=== PATIENT | male | born 1930 | race Caucasian/White ===

== ENCOUNTER 2016-08-08 21:10 | Emergency (ER) | payer MEDICARE, OTHER ==
[~2016-08-08] VITALS: Ht 188 cm; Wt 95.0 kg
[2016-08-08 21:37] VITALS: BP 149/104; PULSE 106; RESP 22; TEMP 98.4; O2SAT 96
[2016-08-08] MEDS ORDERED: LIDOCAINE HCL 2% JELLY 5 ML SYRINGE TOPICAL ONE (23:00)
[2016-08-08 23:38] LABS: POTASSIUM 3.6 MEQ/L (3.5-5.1)
[2016-08-08 23:41] LABS: BICARBONATE 21.2 MEQ/L (21.0-32.0)
[2016-08-08 23:42] LABS: BLOOD, URINE LARGE (NEG); GLUCOSE,URINE 100 mg/dL (NEG); KETONE, URINE 15 mg/dL (NEG)
[2016-08-08 23:48] LABS: NITRITE,URINE POS (NEG); URINE COLOR RED (YELLW/STRAW)
[2016-08-08] MEDS ORDERED: ASPI81CH37 CHEW (23:48)
[2016-08-08 23:49] LABS: BACTERIA, URINE FEW /hpf; COMMENT (UR) CATH-CULTURE IND; CULTURE IF INDICATED CATH CULTURE IND; RBC, URINE INNUM /hpf (0-3); SQUAMOUS EPITHELIAL CELL URINE 0-5 /hpf (0-5)
--- NOTE | 2016-08-09 00:05 | PD ---
HPI Chief Complaint: Complaint Time Seen by Provider: 22:50 Travel History International Travel<30 days: No Contact w/Intl Traveler<30days: No Traveled to known affect area: No History of Present Illness HPI patient is an 85 year old male who had removal of bladder stones on saturday at [facility] released saturday (yesterday) presents to the emergency room with in ability to urinate. also reports having a turp during this time. patient states had a hartman in after the procedure and the it was discontinued. hes been having hematuria ever since the procedure and his urologist said this was expected. denies a problem with his kidneys. he is taking doxycycline for uti. denies fevers, denies abdominal pain. denies change in bowel habits. PFSH Past Medical History Arthritis: Yes High Cholesterol: Yes Diminished Hearing: No Hypertension: Yes Tetanus Vaccination: < 5 Years Influenza Vaccination: No Past Surgical History Genitourinary Surgery: Yes (TRP JULY 2016) Social History Alcohol Use: No Tobacco Use: No Substance Use: No Allergies-Medications (Allergen,Severity, Reaction): Coded Allergies: Neosporin (Verified Allergy, Mild, Rash, 08/08/16) Reported Meds & Prescriptions Reported Meds & Active Scripts Active Reported Doxycycline (Doxycycline (Monohydrate)) 100 Mg Cap Hydrocodone-Acetaminophen 5-325 mg Tab 1 Tab PO Q4H PRN Pravastatin 40 Mg Tab 40 Mg PO DAILY Metoprolol Tartrate 25 Mg Tab 25 Mg PO DAILY Plavix (Clopidogrel Bisulfate) 75 Mg Tab 75 Mg PO DAILY Aspirin Low Dose (Aspirin) 81 Mg Chew 81 Mg CHEW DAILY Review of Systems Except as stated in HPI: all other systems reviewed are Neg Physical Exam Narrative GENERAL: wd wn in minimal discomfort SKIN: Warm and dry. HEAD: Atraumatic. Normocephalic. EYES: Pupils equal and round. No scleral icterus. No injection or drainage. ENT: No nasal bleeding or discharge. Mucous membranes pink and moist. NECK: Trachea midline. No JVD. CARDIOVASCULAR: Regular rate and rhythm. RESPIRATORY: No accessory muscle use. Clear to auscultation. Breath sounds equal bilaterally. GASTROINTESTINAL: Abdomen soft, non-tender, nondistended. Hepatic and splenic margins not palpable. : minimal blood at the meatus. otherwise normal exam. of genitalia. MUSCULOSKELETAL: Extremities without clubbing, cyanosis, or edema. No obvious deformities. NEUROLOGICAL: Awake and alert. No obvious cranial nerve deficits. Motor grossly within normal limits. Five out of 5 muscle strength in the arms and legs. Normal speech. PSYCHIATRIC: Appropriate mood and affect; insight and judgment normal. Data Data Last Documented VS Vital Signs Date Time Temp Pulse Resp B/P Pulse Ox O2 Delivery O2 Flow Rate FiO2 08/09/16 00:35 70 18 119/74 95 Room Air 08/08/16 21:37 98.4 Orders Ed Poc Ultrasound (08/08/16 22:50) Basic Metabolic Panel (Bmp) (08/08/16 22:50) Urinary Catheter Management PRESLEY.Q8H (08/08/16 22:50) Urinalysis - C+S If Indicated (08/08/16 22:58) Lidocaine 2% Jelly (Xylocaine 2% Jelly) (08/08/16 23:00) Urine Culture (08/08/16 23:10) Labs Laboratory Tests Test 08/08/16 08/08/16 23:00 23:10 Sodium Level 132 MEQ/L Potassium Level 3.6 MEQ/L Chloride Level 99 MEQ/L Carbon Dioxide Level 21.2 MEQ/L Anion Gap 12 MEQ/L Blood Urea Nitrogen 27 MG/DL Creatinine 2.30 MG/DL Estimat Glomerular Filtration 27 ML/MIN Rate Random Glucose 140 MG/DL Calcium Level 8.8 MG/DL Urine Color RED Urine Turbidity MARKED Urine pH 7.0 Urine Specific [place] 1.012 Urine Protein 300 OR GREATER mg/dL Urine Glucose (UA) 100 mg/dL Urine Ketones 15 mg/dL Urine Occult Blood LARGE Urine Nitrite POS Urine Bilirubin NEG Urine Leukocyte Esterase MOD Urine RBC INNUM /hpf Urine WBC 25-49 /hpf Urine Squamous Epithelial 0-5 /hpf Cells Urine Bacteria FEW /hpf Microscopic Urinalysis Comment CATH-CULTURE IND MDM Medical Decision Making Medical Screen Exam Complete: Yes Emergency Medical Condition: Yes Differential Diagnosis urinary retention, obstructive uropathy, uti. Narrative Course patient roomed in ed, appears well. hartman placed immediately yielded approx 1L of bloody urine. patient feeling much better. cr is 2.5 no previous for comparison. he does have nitrate pos urine, very rare clot but the hartman is draining well. not on thinners appears adequately hydrated and good volume status. discussed the creatinine and presumptively this os obstructive uropathy which has been relieved. suggested he could be admitted but he would like to follow up woth his urologist at [place]. i informed him i am comfortable woth this plan only if done tomorrow. he is agreed. discharged with hartman in place. Diagnosis Primary Impression: Hematuria Additional Impressions: Urinary retention Acute kidney injury Additional Instructions: Continue taking your doxycycline, follow-up with your urologist first thing in the morning. Disposition: 01 DISCHARGE HOME Condition: Stable Benoit Grove MD Aug 09, 2016 00:05
[2016-08-09 00:35] VITALS: BP 119/74; PULSE 70; RESP 18; O2SAT 95
[2016-08-09] MEDS ORDERED: PRAV40TA2 PO (01:26)
[2016-08-09] MEDS ORDERED: METO25TA3 PO (01:26)
[2016-08-09] MEDS ORDERED: PLAV75TA29 PO (01:26)
[2016-08-09] MEDS ORDERED: DOXY1CAP91 (01:27)
[2016-08-09] MEDS ORDERED: HYDR-3516 PO (01:27)
== END 2016-08-09 00:57 | disposition home or self-care (01) ==
LOC: PHED 21:10
DX: R31.9 Hematuria, unspecified (principal); R33.9 Retention of urine, unspecified; N17.9 Acute kidney failure, unspecified; I10 Essential (primary) hypertension; E78.00 Pure hypercholesterolemia, unspecified; Z98.890 Other specified postprocedural states; Z87.39 Personal history of other diseases of the musculoskeletal system and connective tissue
CPT/HCPCS: 51702; 80048; 81001; 87086

== ENCOUNTER 2016-08-13 00:43 | Emergency (ER) | payer MEDICARE, OTHER ==
[~2016-08-13] VITALS: Ht 193 cm; Wt 92.0 kg
[~2016-08-13 00:43] MED LIST: ASPI81CH37 CHEW; DOXY1CAP91; HYDR-3516 PO; METO25TA3 PO; PLAV75TA29 PO; PRAV40TA2 PO
[2016-08-13 00:48] VITALS: BP 140/109; PULSE 70; RESP 14; TEMP 98.1
--- NOTE | 2016-08-13 01:39 | PD ---
HPI Chief Complaint: Complaint Time Seen by Provider: 01:10 Travel History International Travel<30 days: No Contact w/Intl Traveler<30days: No Traveled to known affect area: No History of Present Illness HPI 85yo M with recent removal of bladder stones at [facility] 1 week ago presents to the ED with complaint that his hartman stopped flowing. States that he empty his hartman bag at 6pm last night and again at 10:30pm last night. So between, 6- 10:30pm, his hartman became clogged because after he emptied the bag at 10:30pm, no urine came out. At about 11pm, he started having suprapubic abdominal pain and some urine leaked around the hartman. Pt was here at [facility] 08/09/16 and had hartman catheter placed for urinary retention. Denies any fever, chest pain, sob , n/v. Pt had just finished doxycycline for UTI. PFSH Past Medical History Arthritis: Yes High Cholesterol: Yes Diminished Hearing: No Hypertension: Yes Past Surgical History Genitourinary Surgery: Yes (TRP JULY 2016) Social History Alcohol Use: No Tobacco Use: No Substance Use: No Allergies-Medications (Allergen,Severity, Reaction): Coded Allergies: Neosporin (Verified Allergy, Mild, Rash, 08/13/16) Reported Meds & Prescriptions Reported Meds & Active Scripts Active Reported Coq-10 (Coenzyme Q10 (Ubidecarenone)) 400 Mg Cap 400 Mg PO DAILY Lecithin 1,200 Mg Cap 1,200 Mg PO DAILY Red Yeast Rice (Red Yeast Rice Extract) 500 Mg/0.5 Gm Pow 500 Mg PO DAILY Garlic 500 Mg Cap 500 Mg PO DAILY Probiotic (Lactobacillus Acidophilus) 1 Cap Cap 1 Cap PO DAILY Multivitamin Adults (Multiple Vitamins W/ Minerals) 1 Tab 1 Tab PO DAILY Doxycycline (Doxycycline (Monohydrate)) 100 Mg Cap Pravastatin 40 Mg Tab 40 Mg PO DAILY Metoprolol Tartrate 25 Mg Tab 25 Mg PO DAILY Plavix (Clopidogrel Bisulfate) 75 Mg Tab 75 Mg PO DAILY Aspirin Low Dose (Aspirin) 81 Mg Chew 81 Mg CHEW DAILY Review of Systems Except as stated in HPI: all other systems reviewed are Neg Physical Exam Narrative GENERAL: 85yo M not in distress. SKIN: Focused skin assessment warm/dry. HEAD: Atraumatic. Normocephalic. CARDIOVASCULAR: Regular rate and rhythm. No murmur appreciated. RESPIRATORY: No accessory muscle use. Clear to auscultation. Breath sounds equal bilaterally. GASTROINTESTINAL: Abdomen soft, non-tender, nondistended. No rebound tenderness or guarding. MUSCULOSKELETAL: No obvious deformities. No clubbing. No cyanosis. No edema. NEUROLOGICAL: Awake and alert. No obvious cranial nerve deficits. Motor grossly within normal limits. Normal speech. PSYCHIATRIC: Appropriate mood and affect; insight and judgment normal. Data Data Last Documented VS Vital Signs Date Time Temp Pulse Resp B/P Pulse Ox O2 Delivery O2 Flow Rate FiO2 08/13/16 00:48 98.1 70 14 140/109 Orders Basic Metabolic Panel (Bmp) (08/13/16 01:31) Urinalysis - C+S If Indicated (08/13/16 01:31) Urine Culture (08/13/16 01:48) Labs Laboratory Tests Test 08/13/16 01:48 Urine Collection Type CATH Urine Color ORANGE Urine Turbidity SLIGHT Urine pH 5.0 Urine Specific [place] 1.008 Urine Protein 30 mg/dL Urine Glucose (UA) NEG mg/dL Urine Ketones NEG mg/dL Urine Occult Blood LARGE Urine Nitrite NEG Urine Bilirubin NEG Urine Leukocyte Esterase TRACE Urine RBC INNUM /hpf Urine WBC 3-5 /hpf Urine WBC Clumps RARE Urine Amorphous Sediment FEW Urine Mucus OCC /lpf Microscopic Urinalysis Comment CATH-CULTURE IND Sodium Level 143 MEQ/L Potassium Level 3.6 MEQ/L Chloride Level 105 MEQ/L Carbon Dioxide Level 27.2 MEQ/L Anion Gap 11 MEQ/L Blood Urea Nitrogen 21 MG/DL Creatinine 1.40 MG/DL Estimat Glomerular Filtration 48 ML/MIN Rate Random Glucose 104 MG/DL Calcium Level 8.7 MG/DL [facility] Medical Decision Making Medical Screen Exam Complete: Yes Emergency Medical Condition: Yes Interpretation(s) Laboratory Tests Test 08/13/16 01:48 Urine Collection Type CATH Urine Color ORANGE (YELLW/STRAW) Urine Turbidity SLIGHT (CLEAR) Urine pH 5.0 (5.0-8.5) Urine Specific [place] 1.008 (1.002-1.035) Urine Protein 30 mg/dL (NEG-TRACE) Urine Glucose (UA) NEG mg/dL (NEG) Urine Ketones NEG mg/dL (NEG) Urine Occult Blood LARGE (NEG) Urine Nitrite NEG (NEG) Urine Bilirubin NEG (NEG) Urine Leukocyte Esterase TRACE (NEG) Urine RBC INNUM /hpf (0-3) Urine WBC 3-5 /hpf (0-5) Urine WBC Clumps RARE (NONE) Urine Amorphous Sediment FEW Urine Mucus OCC /lpf (OCC) Microscopic Urinalysis Comment CATH-CULTURE IND Sodium Level 143 MEQ/L (136-145) Potassium Level 3.6 MEQ/L (3.5-5.1) Chloride Level 105 MEQ/L (98-107) Carbon Dioxide Level 27.2 MEQ/L (21.0-32.0) Anion Gap 11 MEQ/L (5-15) Blood Urea Nitrogen 21 MG/DL (7-18) Creatinine 1.40 MG/DL (0.60-1.30) Estimat Glomerular Filtration 48 ML/MIN (>89) Rate Random Glucose 104 MG/DL (74-106) Calcium Level 8.7 MG/DL (8.5-10.1) Differential Diagnosis Clogged hartman catheter Narrative Course 85yo M with complaint of clogged hartman catheter tonight. My nurse was able to easily flush the hartman catheter and a few blood clots came out. After the clots , the urine was flowing well and it had clear up to yellow. Pt states that he is no longer in pain and feels great. Pt is well appearing and has appointment with his urologist in 2 days. Labs reviewed, creatinine is 1.40 which has improved from 2.30 on 08/08/16. UA showed large blood and trace leukocyte. WBC is only 3-5 so I do not feel that pt need to be treated. Last urine culture on 08/08/16 was negative. Return precautions given. Diagnosis Primary Impression: Hartman catheter problem Qualified Code: T83.9XXA - Hartman catheter problem, initial encounter Patient Instructions: General Instructions Departure Forms: Tests/Procedures Additional Instructions: Please follow up with your urologist at your appointment in 2 days. Return to the ED if symptoms worsen. Med/Other Pt SpecificInfo: No Change to Meds Disposition: 01 DISCHARGE HOME Condition: Stable Karin Marcial DO August 13, 2016 01:38
[2016-08-13 01:54] LABS: BLOOD, URINE LARGE (NEG); GLUCOSE,URINE NEG (NEG); KETONE, URINE NEG (NEG); NITRITE,URINE NEG (NEG)
[2016-08-13 02:00] LABS: METHOD OF COLLECTION CATH; RBC, URINE INNUM /hpf (0-3); URINE COLOR ORANGE (YELLW/STRAW)
[2016-08-13 02:01] LABS: MUCUS URINE OCC /lpf (OCC)
[2016-08-13 02:02] LABS: POTASSIUM 3.6 MEQ/L (3.5-5.1)
[2016-08-13] MEDS ORDERED: COEN400C PO (02:04)
[2016-08-13] MEDS ORDERED: LACTCAP8 PO (02:04)
[2016-08-13] MEDS ORDERED: MULT1TAB84 PO (02:04)
[2016-08-13] MEDS ORDERED: GARL500C5 PO (02:04)
[2016-08-13] MEDS ORDERED: RED0.25P PO (02:04)
[2016-08-13] MEDS ORDERED: LECI1200 PO (02:04)
[2016-08-13 02:05] LABS: BICARBONATE 27.2 MEQ/L (21.0-32.0); COMMENT (UR) CATH-CULTURE IND; CULTURE IF INDICATED CATH CULTURE IND
[2016-08-13 02:46] VITALS: BP 130/92; TEMP 98.1
== END 2016-08-13 02:48 | disposition home or self-care (01) ==
LOC: PHED 00:43
DX: T83.091A Other mechanical complication of indwelling urethral catheter, initial encounter (principal)
CPT/HCPCS: 80048; 81001; 87086; 99283